=== PATIENT | female | born 1990 | race American Indian/Alaskan Native ===

== ENCOUNTER 2019-04-12 21:40 | Emergency (ER) | payer BC ==
[2019-04-12 21:46] VITALS: BP 128/39
--- NOTE | 2019-04-12 21:46 | Event Note ---
ED Screening Note ED Screening Note: pt presents with LLQ abd pain that began at 2 PM +nausea no V/D +dysuria, urinary frequency no fever LNMP two weeks ago PMHx none no daily meds no allergies to meds no abdominal surgeries This initial assessment/diagnostic orders/clinical plan/treatment(s) is/are subject to change based on patients health status, clinical progression and re- assessment by fellow clinical providers in the ED. Further treatment and workup at subsequent clinical providers discretion. Patient/guardian urged not to elope from the ED as their condition may be serious if not clinically assessed and managed. Initial orders include: labs, UA, urine preg
[2019-04-12 22:52] LABS: HCG Qualitative,Urine Negative (Negative)
[2019-04-12 22:57] LABS: Bacteria,Urine 1+ /HPF (Negative); Bilirubin,Urine NEG (Negative); Blood,Urine NEG (Negative); Color,Urine Yellow (Yellow); Mucus,Urine FEW /HPF; Protein,Urine <15 mg/dL mg/dL (Negative); Urobilinogen,Urine < 2.0 mg/dL (<2.0); WBC,Urine < 1.0 /HPF (0.0-6.0)
[2019-04-12 23:19] LABS: Hematocrit 36.5 % (30.3-42.9); Hemoglobin 11.6 gm/dl (10.1-14.3); Mean Corpuscular HGB Conc 32 % (30-34); Platelet Count 198 K/mm3 (140-440); Red Blood Count 5.31 M/mm3 (3.65-5.03); Red Cell Distribution Width 15.5 % (13.2-15.2)
[2019-04-12 23:29] LABS: Mean Corpuscular Volume 69 fl (79-97)
[2019-04-13 00:27] LABS: Alanine Aminotransferase 12 units/L (7-56); Albumin 4.1 g/dL (3.9-5); BUN/Creatinine Ratio 19; Blood Urea Nitrogen 13 mg/dL (7-17); Calcium 9.8 mg/dL (8.4-10.2); Hemolysis Index 7
--- NOTE | 2019-04-13 01:56 | Cat Scan Report ---
CT ABDOMEN AND PELVIS WITH IV CONTRAST INDICATION: Lower quadrant pain. COMPARISON: None available. TECHNIQUE: All CT scans at this facility use dose modulation, automated exposure control, iterative reconstructi on or weight based dosing, when appropriate, to reduce radiation dose to as low as reasonably achieva ble. FINDINGS: Lung Bases: Clear. Skeletal System: No acute abnormality. ABDOMEN: Liver: Normal. Gallbladder: Contracted. Bile Ducts: Normal. Pancreas: Normal. Spleen: Normal. Adrenals: Normal. Right Kidney: Normal. Left Kidney: Normal. Stomach and Bowel: There is no small bowel obstruction. Small bowel is fluid-filled diffusely but not dilated. Lymph Nodes: No significant adenopathy. Aorta: No significant abnormality. Additional Findings: None. PELVIS: Colon: Normal . Urinary Bladder and Distal Ureters: Normal. Appendix: Normal. Lymph Nodes: No significant adenopathy. Additional Findings: None. IMPRESSION: 1. Questionable mild enteritis. 2. Incidental findings, as above. Signer Name: Jean Cruz MD Signed: 04/13/2019 1:51 AM Workstation Name: [id number]
[2019-04-13] MEDS ORDERED: TORADOL IV ONE (02:00)
[2019-04-13] MEDS ORDERED: ZOFRAN IV ONE (02:00)
[2019-04-13] MEDS ORDERED: DECADRON IV ONE (02:00)
--- NOTE | 2019-04-13 02:04 | Emergency Department Report ---
ED Abdominal Pain HPI - General Chief Complaint: Abdominal Pain Stated Complaint: LLQ PAIN/NAUSEA Time Seen by Provider: 04/12/19 21:44 Source: patient Mode of arrival: Ambulatory Limitations: No Limitations - History of Present Illness Initial Comments: Patient is a 28-year-old -[place] female with no past medical history presents to the ED, in no acute onset persistent left flank pain that radiates to the left hip and diffuse in the lower abdomen for the last 2 weeks that was what was in the last 6 hours while at work. Patient denies dysuria, urinary frequency and urgency, headache, chest pain, shortness of breath, diarrhea, nausea, vomiting, vaginal bleeding, vaginal discharge, dizziness, fever or chills, chest pain or shortness of breath or numbness and tingling of the lower extremities bilaterally. MD Complaint: abdominal pain, flank pain (left) -: Gradual, week(s) (2) Location: LLQ, suprapubic, L flank Radiation: LLQ, suprapubic, L flank Migration to: LLQ, suprapubic, L flank Severity: severe Severity scale (0 -10): 7 Quality: aching, sharp Consistency: constant Improves With: medication (ibuprofen) Worsens With: movement Associated Symptoms: denies other symptoms. denies: nausea, vomiting, diarrhea, fever, chills, constipation, dysuria, hematemesis, hematochezia, melena, hematuria, anorexia, syncope Treatments Prior to Arrival: NSAIDs - Related Data Previous Rx's Medication Instructions Recorded Last Taken Type Naproxen [Naprosyn TAB] 500 mg PO Q12H PRN #20 tablet 04/13/19 Unknown Rx tiZANidine [Zanaflex 4mg TAB] 4 mg PO Q8H PRN #15 tablet 04/13/19 Unknown Rx Allergies Allergy/AdvReac Type Severity Reaction Status Date / Time No Known Allergies Allergy Verified 04/12/19 21:42 ED Review of Systems ROS: Stated complaint: LLQ PAIN/NAUSEA Other details as noted in HPI Constitutional: denies: chills, fever Eyes: denies: eye pain, eye discharge, vision change ENT: denies: ear pain, throat pain Respiratory: denies: cough, shortness of breath, wheezing Cardiovascular: denies: chest pain, palpitations Endocrine: no symptoms reported Gastrointestinal: abdominal pain. denies: nausea, diarrhea, constipation, hematemesis, melena, hematochezia Genitourinary: denies: urgency, dysuria, discharge Musculoskeletal: back pain (lower). denies: joint swelling, arthralgia Skin: denies: rash, lesions Neurological: denies: headache, weakness, paresthesias Psychiatric: denies: anxiety, depression Hematological/Lymphatic: denies: easy bleeding, easy bruising ED Past Medical Hx - Past Medical History Previous Medical History?: No - Surgical History Past Surgical History?: No - Social History Smoking Status: Never Smoker Substance Use Type: None - Medications Home Medications: Home Medications Medication Instructions Recorded Confirmed Last Taken Type Naproxen [Naprosyn TAB] 500 mg PO Q12H PRN #20 tablet 04/13/19 Unknown Rx tiZANidine [Zanaflex 4mg TAB] 4 mg PO Q8H PRN #15 tablet 04/13/19 Unknown Rx ED Physical Exam - General Limitations: No Limitations General appearance: alert, in no apparent distress - Head Head exam: Present: atraumatic, normocephalic, normal inspection - Eye Eye exam: Present: normal appearance, PERRL, EOMI. Absent: scleral icterus, conjunctival injection, nystagmus Pupils: Present: normal accommodation - ENT ENT exam: Present: normal exam, normal orophraynx, mucous membranes moist, TM's normal bilaterally, normal external ear exam - Neck Neck exam: Present: normal inspection, full ROM - Respiratory Respiratory exam: Present: normal lung sounds bilaterally. Absent: respiratory distress, wheezes, rales, rhonchi, chest wall tenderness, accessory muscle use, decreased breath sounds - Cardiovascular Cardiovascular Exam: Present: regular rate, normal rhythm, normal heart sounds. Absent: systolic murmur, diastolic murmur, rubs, gallop - GI/Abdominal GI/Abdominal exam: Present: soft, tenderness (mildly tender LLQ), normal bowel sounds. Absent: guarding, rebound, hyperactive bowel sounds, hypoactive bowel sounds, organomegaly, mass, bruit - Rectal Rectal exam: Present: deferred - Extremities Exam Extremities exam: Present: normal inspection, full ROM, normal capillary refill - Back Exam Back exam: Present: normal inspection, full ROM. Absent: tenderness, CVA tenderness (R), CVA tenderness (L), muscle spasm, paraspinal tenderness, vertebral tenderness - Neurological Exam Neurological exam: Present: alert, oriented X3, CN II-XII intact, normal gait, reflexes normal - Psychiatric Psychiatric exam: Present: normal affect, normal mood - Skin Skin exam: Present: warm, dry, intact, normal color. Absent: rash ED Course Vital Signs 04/12/19 21:45 Temperature 97.9 F Pulse Rate 74 Respiratory 18 Rate Blood Pressure 128/39 O2 Sat by Pulse 97 Oximetry - Reevaluation(s) Reevaluation #1: 04/13/19 02:04 Patient is alert and oriented 3 and is in no significant distress. Patient was treated for pain in the ED. Lab test results were reviewed and are unremarkable including urinalysis. Abdomen pelvis CT scan with contrast shows nonspecific findings consistent with small bowel enteritis. There are no other abdominal or pelvis pathologies identified on CT scan. On reevaluation, patient's pain is well-controlled and is discharged home on medications and muscle relaxants and advised to follow up with her primary care physician in 7-10 days for reevaluation. Patient was advised to return to the ED immediately if symptoms get worse. ED Medical Decision Making - Lab Data Result diagrams: 04/12/19 22:29 04/12/19 22:30 - Radiology Data Radiology results: report reviewed, [place] [address] Cat Scan Report Signed Patient: SIL PIERCE MR#: [id number] : 1990 Acct:[id number] Age/Sex: 28 / F ADM Date: 04/12/19 Loc: ED Attending Dr: Ordering Physician: URIEL AGUILA Date of Service: 04/13/19 Procedure(s): CT abdomen pelvis w con Accession Number(s): [id number] cc: URIEL AGUILA CT ABDOMEN AND PELVIS WITH IV CONTRAST INDICATION: Lower quadrant pain. COMPARISON: None available. TECHNIQUE: All CT scans at this facility use dose modulation, automated exposure control, iterative reconstruction or weight based dosing, when appropriate, to reduce radiation dose to as low as reasonably achievable. FINDINGS: Lung Bases: Clear. Skeletal System: No acute abnormality. ABDOMEN: Liver: Normal. Gallbladder: Contracted. Bile Ducts: Normal. Pancreas: Normal. Spleen: Normal. Adrenals: Normal. Right Kidney: Normal. Left Kidney: Normal. Stomach and Bowel: There is no small bowel obstruction. Small bowel is fluid- filled diffusely but not dilated. Lymph Nodes: No significant adenopathy. Aorta: No significant abnormality. Additional Findings: None. PELVIS: Colon: Normal . Urinary Bladder and Distal Ureters: Normal. Appendix: Normal. Lymph Nodes: No significant adenopathy. Additional Findings: None. IMPRESSION: 1. Questionable mild enteritis. 2. Incidental findings, as above. Signer Name: Jean Cruz MD Signed: 04/13/2019 1:51 AM Workstation Name: [id number] Transcribed By: GEORGSE Dictated By: Jean Cruz MD Electronically Authenticated By: Jean Cruz MD Signed Date/Time: 04/13/19150 DD/ 014 - Medical Decision Making Patient is alert and oriented 3 and is in no significant distress. Patient was treated for pain in the ED. Lab test results were reviewed and are unremarkable including urinalysis. Abdomen pelvis CT scan with contrast shows nonspecific findings consistent with small bowel enteritis. There are no other abdominal or pelvis pathologies identified on CT scan. On reevaluation, patient's pain is well-controlled and is discharged home on medications and muscle relaxants and advised to follow up with her primary care physician in 7-10 days for re evaluation. Patient was advised to return to the ED immediately if symptoms get worse. - Differential Diagnosis abdominal pain, kidney stones, muscle spasms, muscle strain, appendicitis Critical care attestation.: If time is entered above; I have spent that time in minutes in the direct care of this critically ill patient, excluding procedure time. ED Disposition Clinical Impression: Abdominal pain Qualifiers: Abdominal location: left lower quadrant Qualified Code(s): R10.32 - Left lower quadrant pain Abdominal muscle strain Qualifiers: Encounter type: initial encounter Qualified Code(s): S39.011A - Strain of muscle, fascia and tendon of abdomen, initial encounter Disposition: -01 TO HOME OR SELFCARE Is pt being admited?: No Does the pt Need Aspirin: No Condition: Stable Instructions: Abdominal Pain (ED), Muscle Strain (ED) Additional Instructions: Take medications with food, drink plenty of fluids and follow-up with your primary care physician in 5-7 days for reevaluation. Return to the ED immediately if symptoms get worse. Prescriptions: Naproxen [Naprosyn TAB] 500 mg PO Q12H PRN #20 tablet PRN Reason: Pain , Severe (7-10) tiZANidine [Zanaflex 4mg TAB] 4 mg PO Q8H PRN #15 tablet PRN Reason: Spasms Referrals: CLARISSE IRWIN MD [Primary Care Provider] - 3-5 Days Time of Disposition: 02:11 Print Language: BARBADIAN
[2019-04-13 04:19] LABS: Basophils % (Manual) 0 % (0.0-1.8); Large Platelets 1+; Total Cells Counted 100
[2019-04-13 04:20] LABS: Hypochromasia 2+; Platelet Estimate Consistent w Auto; Poikilocytosis 1+
== END 2019-04-13 02:30 | disposition home or self-care (01) ==
LOC: ED 21:40
DX: S39.011A Strain of muscle, fascia and tendon of abdomen, initial encounter (principal); Z79.1 Long term (current) use of non-steroidal anti-inflammatories (NSAID); X58.XXXA Exposure to other specified factors, initial encounter; Y93.89 Activity, other specified; Y92.69 Other specified industrial and construction area as the place of occurrence of the external cause; Y99.8 Other external cause status
CPT/HCPCS: 36415; 74177; 80053; 81001; 81025; 83690; 85007; 85025; 96374; 96375; 99284; J1100; J1885; J2405; Q9967